=== PATIENT | male | born 1990 | race Caucasian/White ===

== ENCOUNTER → 2019-09-07 | Outpatient (CLI) | payer OTHER, SELFPAY | PROVIDERS: Visit Provider Nurse Practitioner Psychiatric/Mental Health | DX: F33.2 Major depressive disorder, recurrent severe without psychotic features (principal); F41.1 Generalized anxiety disorder; F10.20 Alcohol dependence, uncomplicated ==

== ENCOUNTER 2019-10-12 08:14 | Emergency (ER) | payer SELFPAY ==
[2019-10-12 08:18] VITALS: BP 136/72; PULSE 88; RESP 18; TEMP 36.6; O2SAT 99; BMI 23.6
--- NOTE | 2019-10-12 08:24 | ED_ITS ---
HPI - Extremity Problem General: Chief complaint: Extremity Injury, Lower Stated complaint: LEG PAIN Time Seen by Provider: 10/12/19 08:19 Source: patient Mode of arrival: ambulatory Limitations: no limitations History of Present Illness: HPI Narrative: Patient is a 29-year-old male who presents to ED today with complaints of bilateral thigh/quadriceps pain; patient states he was doing a heavy squat for the first time of 180 pounds on Saturday and states the following day on he began having pain to his anterior, medial, and lateral thighs; patient has been ambulatory without difficulty; he has not noticed any swelling, warmth, color/temperature changes to the extremity; he never had immediate pain following the lifting MD Complaint: extremity pain Onset (ago): day(s) Pain Consistency: constant Location: left and right Radiation: none Relieving factors: immobilization Exacerbating factors: weight bearing and walking Associated symptoms: Reports no associated symptoms; Deny fever(s) Review of Systems Const: Denies: fever, chills, body aches, fatigue or malaise Musc: Reports: extremity pain; Denies: neck pain, back pain, extremity swelling, joint pain, joint swelling, redness, joint warmth or joint stiffness Skin/Breast: Denies: redness Neuro: Denies: headache, numbness in extremities, weakness in extremities, changes in sensation or difficulty walking PFSH ED PFSH: Statuses (acute, chronic, etc) shown below reflect problem list status as previously entered and may not be historically accurate Social History (Updated 10/05/19 @ 16:05 by [place] Díaz LPN) Smoking and tobacco status: current every day smoker cigarettes Years cigarettes smoked: 13 Quit status (tobacco): considering quitting Second hand smoke exposure: No Physical Exam Const: COMMON NORMALS: no apparent distress, average body habitus, oriented x3, no limitations, alert and well nourished Resp: COMMON NORMALS: normal respiratory effort and clear to auscultation bilaterally AUSCULTATION: clear to auscultation bilaterally Cardio: COMMON NORMALS: regular rate and regular rhythm RATE: regular rate RHYTHM: regular rhythm Back/Pelvis: COMMON NORMALS: thoracic and lumbar spine normal to inspection Extremity: COMMON NORMALS: full ROM, normal capillary refill, no joint enlargement, no clubbing, cyanosis or edema, no calf tenderness and no pedal edema GENERAL: No calf tenderness and No weight-bearing difficulty OTHER: pt with TTP of bilateral quadricep musculature; there is no swelling/warmth appreciated; pt maintains ROM and strength to bilateral LEs Neuro: COMMON NORMALS: oriented x3 SENSORIUM/ORIENTATION: Yes alert Course Vital Signs: Vital signs: Vital Signs Temperature 97.8 F 10/12/19 08:18 Pulse Rate 88 10/12/19 08:25 Respiratory Rate 18 10/12/19 08:18 Blood Pressure 136/72 10/12/19 08:18 Pulse Oximetry 99 10/12/19 08:18 MDM - Extremity (Nontraumatic) MDM Narrative: Medical decision making narrative: symptoms began the day after lifting making muscle rupture unlikely-also bilaterally so again unlikely; pt has been ambulatory w/o difficulty; there is no swelling/redness or other abnormalities noted; most likely he just overused/sprained his quads as this was his first time lifting/squatting; recommend ice/heat, elevation, NSAIDS, and rest from lifting until healed and then needs to start at a lower weight and work his way up Discharge Plan Discharge Patient Disposition: Home, Self-Care Clinical Impression: Leg strain Condition: Stable Prescriptions: New diclofenac sodium 50 mg tablet,delayed release (DR/EC) 50 mg PO Q8H PRN (Reason: pain) Qty: 20 RF: 0 No Action quetiapine 300 mg tablet 600 mg PO .QHS Qty: 60 RF: 0 bupropion HCl 300 mg tablet extended release 24 hr 300 mg PO QAM Qty: 30 RF: 0 escitalopram oxalate [Lexapro] 20 mg tablet 20 mg PO QDAY Qty: 30 RF: 0 Discharge Orders: Discharge Order (Routine); Ordered 10/12/19 Ordered By: Carine Campos Referrals: Terri Woods MD [Primary Care Provider] - Discharge Diet: Usual diet Discharge Activity: Increase activity as tolerated Patient Instructions: Muscle Strain (ED), RICE Therapy Coding Level of Care Code ED Community Health Program Coordinator for Chacha Torres
[2019-10-12 08:25] VITALS: PULSE 88
--- NOTE | 2019-10-12 08:28 | PC.NURSE ---
Patient states he has bilateral upper leg pain that has been present since Saturday. Patient states that he was doing leg press at the gym and the following day he began to have pain in the upper legs from the medial knee through the thighs as well as the lateral knee up through thighs and into the buttocks. Patient states that the pain is hard to describe but the pain is constant and he rates it a 10/10.
--- NOTE | 2019-10-12 08:32 | PC.NURSE ---
patient up for discharge
[2019-10-12] MEDS: ketorolac 60 mg/2 mL INJ IM (08:43)
== END 2019-10-12 08:46 | disposition home or self-care (01) ==
PROVIDERS: Emergency Provider Physician Assistant; PCP Family Medicine
DX: S76.912A Strain of unspecified muscles, fascia and tendons at thigh level, left thigh, initial encounter (principal); S76.911A Strain of unspecified muscles, fascia and tendons at thigh level, right thigh, initial encounter; F17.210 Nicotine dependence, cigarettes, uncomplicated; X50.0XXA Overexertion from strenuous movement or load, initial encounter
CPT/HCPCS: 96372; 99281; 99282; J1885

== ENCOUNTER 2019-10-31 10:00 | Emergency (ER) | payer SELFPAY ==
[2019-10-31 10:10] VITALS: BMI 23.6
[2019-10-31 10:13] VITALS: BP 141/78; PULSE 104; RESP 20; TEMP 37.2; O2SAT 97
--- NOTE | 2019-10-31 10:18 | XR_ITS ---
WS: [id number] XR chest 1V portable [id number] REASON FOR EXAM: productive cough FINDINGS: The heart and mediastinal interfaces are normal. Comparisons were made to 08/03/2019. Normal appearance of the peripheral lungs. No pneumonia, pleural effusion, pulmonary edema, or mass e ffect. The hilum and apices are normal. XR/XR chest 1V portable [id number] IMPRESSION: Negative chest for active pathology
--- NOTE | 2019-10-31 10:25 | W.ED.GENADLT ---
HPI - General Adult General: Chief complaint: Fever Stated complaint: FEVER ACHES AND CONGESTION Time Seen by Provider: 10/31/19 10:18 History of Present Illness: HPI narrative: Patient comes in with cough fever and chills for the last 3 days. Cough is getting worse. Patient has a history of asthma and is a smoker. Now has productive cough and some wheezing. Has been taking Tylenol and ibuprofen. MD complaint: cough Onset (ago): day(s) (3) Severity: moderate Associated symptoms: Reports fevers/chills; Deny chest pain, dyspnea, headache(s), nausea, rash or vomiting Review of Systems Const: Reports: fever, chills and body aches Eyes: Denies: change in vision or blurry vision ENMT: Denies: throat pain or nasal congestion Card: Denies: chest pain or shortness of breath on exertion Resp: Reports: productive cough and wheezing; Denies: shortness of breath or non-productive cough GI: Denies: abdominal pain, nausea or vomiting : Denies: difficulty urinating Musc: Denies: extremity pain Skin/Breast: Denies: rash Neuro: Denies: headache Psych: Denies: anxiety or depression Jhon/Lymph: Denies: easy bruising PFSH ED PFSH: Social History (Updated 10/05/19 @ 16:05 by [place] Díaz LPN) Smoking and tobacco status: current every day smoker cigarettes Years cigarettes smoked: 13 Quit status (tobacco): considering quitting Second hand smoke exposure: No Physical Exam Const: COMMON NORMALS: no apparent distress, average body habitus and oriented x3 HENMT: COMMON NORMALS: normocephalic HEAD & SCALP: normal to inspection and normocephalic FACE & SINUS: normal facial exam Eye: COMMON NORMALS: conjunctivae normal GENERAL EYE: normal appearance of both eyes CONJUNCTIVA: Yes conjunctivae normal Neck/C-Spine: COMMON NORMALS: no JVD Chest: COMMONS NORMALS: inspection of chest normal Resp: COMMON NORMALS: normal respiratory effort EFFORT & INSPECTION: Yes actively coughing AUSCULTATION: wheezes Cardio: COMMON NORMALS: no JVD, regular rate and regular rhythm RATE: regular rate RHYTHM: regular rhythm GI: COMMON NORMALS: normal to inspection, nondistended, normoactive bowel sounds Extremity: COMMON NORMALS: normal to inspection and full ROM Neuro: COMMON NORMALS: oriented x3 Course Vital Signs: Vital signs: Vital Signs Temperature 99.0 F 10/31/19 10:13 Pulse Rate 104 H 10/31/19 10:13 Respiratory Rate 20 H 10/31/19 10:13 Blood Pressure 141/78 10/31/19 10:13 Pulse Oximetry 97 10/31/19 10:13 Discharge Plan Discharge Prescriptions: No Action quetiapine 300 mg tablet 600 mg PO .QHS Qty: 60 RF: 0 bupropion HCl 300 mg tablet extended release 24 hr 300 mg PO QAM Qty: 30 RF: 0 escitalopram oxalate [Lexapro] 20 mg tablet 20 mg PO QDAY Qty: 30 RF: 0 diclofenac sodium 50 mg tablet,delayed release (DR/EC) 50 mg PO Q8H PRN (Reason: pain) Qty: 20 RF: 0 Coding Level of Care Code ED [employer] Footballer for Chacha Torres
[2019-10-31 10:38] LABS: Basophils % 0.2 %; Hematocrit 45.2 % (42.0-52.0); Hemoglobin 15.1 g/dL (11.7-16.6); Lymphocytes # 1.5 10^3/uL (0.8-4.8); Lymphocytes % 24.8 %; Mean Corpuscular HGB Conc 33.4 g/dL (30.0-36.0); Mean Corpuscular Hemoglobin 29.7 pg (28.0-34.0); Mean Platelet Volume 9.7 fL (7.4-10.4); Monocytes # 0.6 10^3/uL (0.2-0.9); Monocytes % 10.5 %; Neutrophils # 3.9 10^3/uL (1.8-7.7); Neutrophils % 64.3 %; Nucleated Red Blood Cells % 0 %; Platelet Count 185 10^3/cmm (130-400); Red Blood Count 5.08 10^6/uL (4.1-5.3); White Blood Count 6.1 10^3/uL (4.0-10.0)
[2019-10-31 10:55] LABS: Influenza A by IFA Negative (Negative); Influenza B by IFA Negative (Negative)
[2019-10-31 10:56] VITALS: PULSE 103; RESP 18; O2SAT 96
[2019-10-31 10:56] LABS: Anion Gap 17.1 (5-19); Blood Urea Nitrogen 14 mg/dL (6-20); Calcium 9.6 mg/dL (8.5-10.5); Carbon Dioxide 26 mmol/L (22-29); Chloride 96 mmol/L (98-107); Glomerular Filtration Rate 59.1 mL/min (90-130); Glucose 90 mg/dL (65-115); Osmolality Calculated 276 mOsm/kg (285-295); Potassium 4.1 mmol/L (3.5-5.1); Sodium 135 mmol/L (136-145)
[2019-10-31] MEDS: ipratropium-albuterol 3 mL Neb INHALATION ×2 (10:56→11:33)
[2019-10-31 11:00] VITALS: PULSE 106
[2019-10-31] MEDS: sodium chloride 0.9% 1,000 ML 999 ML IV (11:14)
[2019-10-31 11:33] VITALS: PULSE 98; RESP 20; O2SAT 98
[2019-10-31 11:37] VITALS: PULSE 107
[2019-10-31 12:03] VITALS: BP 123/73; PULSE 102; RESP 16; O2SAT 96
== END 2019-10-31 12:04 | disposition home or self-care (01) ==
PROVIDERS: Emergency Provider Nurse Practitioner Family; PCP Family Medicine
DX: R50.9 Fever, unspecified (principal); R05 Cough; J45.909 Unspecified asthma, uncomplicated; F17.210 Nicotine dependence, cigarettes, uncomplicated
CPT/HCPCS: 36415; 71045; 80048; 85025; 87804; 94640; 96361; 96374; 96375; 99282; 99283; J2930; J7030

== ENCOUNTER → 2019-11-05 09:50 | Outpatient (BNVA) | payer OTHER, SELFPAY | PROVIDERS: PCP Family Medicine; Visit Provider Nurse Practitioner Psychiatric/Mental Health | DX: Z51.81 Encounter for therapeutic drug level monitoring (principal); F33.2 Major depressive disorder, recurrent severe without psychotic features; F41.1 Generalized anxiety disorder; F10.21 Alcohol dependence, in remission; F17.200 Nicotine dependence, unspecified, uncomplicated; F40.10 Social phobia, unspecified | CPT/HCPCS: 80306; 80307 ==